=== PATIENT | female | born 1990 | race Caucasian/White ===

== ENCOUNTER 2018-07-24 13:30 | Emergency (ER) | payer OTHER ==
[2018-07-24 13:53] VITALS: BP 157/97
--- NOTE | 2018-07-24 14:11 | UC ---
Skin Complaint HPI - HPI Summary HPI Summary: 28-year-old woman comes in with a chief complaint of a scalp laceration on her left side. Couple hours ago patient was on the floor of her house cleaning and when she got up to standing she struck her left lateral scalp on the edge of a coffee table. She had quite a bit of bleeding. She stopped bleeding with direct pressure. When she became active again started bleeding again. No loss of consciousness no nausea. The light does bother her eyes some when outside. No weakness or numbness. Not on any blood thinners. She does have a headache. - History of Current Complaint Chief Complaint: UCHeadInjury Time Seen by Provider: 07/24/18 13:55 Stated Complaint: HEAD INJURY Hx Last Menstrual Period: 07/2018 Pain Intensity: 8 - Allergy/Home Medications Allergies/Adverse Reactions: Allergies Allergy/AdvReac Type Severity Reaction Status Date / Time No Known Allergies Allergy Verified 07/24/18 13:47 PMH/Surg Hx/FS Hx/Imm Hx Previously Healthy: Yes - Surgical History Surgical History: Yes Surgery Procedure, Year, and Place: gb 2006, 4 cesarians 2007,2010; as a baby intestinal blockage - Family History Known Family History: Positive: Non-Contributory - Social History Alcohol Use: None Substance Use Type: None Smoking Status (MU): Heavy Every Day Tobacco Smoker Type: Cigarettes Amount Used/How Often: 1 PPD Review of Systems All Other Systems Reviewed And Are Negative: Yes Constitutional: Positive: Negative Skin: Positive: Other - SEE HPI Eyes: Positive: Photophobia ENT: Positive: Negative Respiratory: Positive: Negative Cardiovascular: Positive: Negative Gastrointestinal: Positive: Negative Motor: Positive: Negative Neurovascular: Positive: Negative Musculoskeletal: Positive: Negative Neurological: Positive: Headache Psychological: Positive: Negative Is Patient Immunocompromised?: No Physical Exam Triage Information Reviewed: Yes Appearance: Well-Appearing, No Pain Distress, Well-Nourished Vital Signs: Initial Vital Signs Temp 98.1 F 07/24/18 13:48 Pulse 89 07/24/18 13:48 Resp 16 07/24/18 13:48 BP 157/97 07/24/18 13:48 Pulse Ox 100 07/24/18 13:48 Vital Signs Reviewed: Yes Eye Exam: Normal Eyes: Positive: Conjunctiva Clear, Other: - PERRLA/EOMI ENT: Positive: TMs normal - NO HEMOTYMPANUM Neck: Positive: Supple Respiratory: Positive: No respiratory distress Musculoskeletal Exam: Normal Musculoskeletal: Positive: Strength Intact, ROM Intact Neurological Exam: Normal Neurological: Positive: Alert, Muscle Tone Normal Psychological Exam: Normal Psychological: Positive: Age Appropriate Behavior Skin: Positive: Other - 2CM SC SCALP LACERATION LEFT PARIETAL-OCCIPITAL SCALP. NOT BLEEDING. Laceration Repair - Laceration Repair 1 Description: Linear Laceration Size After Repair: Length (cm) - 2CM, Depth (mm) - SC Modified For Repair: No Cleansing Completed Via Routine Prep: Yes Closure Material: Weare - #3 Course/Dx - Course Course Of Treatment: I stapled the laceration with 3 hailey. Patient did have a headache and some mild photophobia out in the sun otherwise no neurologic symptoms. We discussed signs and symptoms of concussion and whether or not to get a head CT. Given her mechanism and her symptoms at this time and not being on a blood thinner were not getting a head CT at this time the patient felt comfortable not getting a head CT at this time. We discussed that if her symptoms worsen at all that she should get reevaluated potentially for imaging if indicated. - Diagnoses Provider Diagnosis: Scalp laceration, Head injury Discharge - Sign-Out/Discharge Documenting (check all that apply): Patient Departure All imaging exams completed and their final reports reviewed: No Studies - Discharge Plan Condition: Stable Disposition: HOME Patient Education Materials: Care For Your Stitches (ED), Laceration (ED) [place]: [facility] [place] [facility] [Outside] Additional Instructions: FOLLOW UP WITH YOUR DOCTOR OR RETURN HERE TO HAVE THE HAILEY TAKEN OUT IN 7 DAYS. GET REEVALUATED SOONER FOR ANY WORSENING OF YOUR CONDITION; PAIN, WEAKNESS, NUMBNESS, DIFFICULTY WITH VISION OR SPEECH, UNEXPLAINED VOMITING OR ANY QUESTIONS OR CONCERNS. - Billing Disposition and Condition Condition: STABLE Disposition: Home
== END 2018-07-24 14:18 | disposition home or self-care (01) ==
LOC: UCCORT 13:30
DX: S01.01XA Laceration without foreign body of scalp, initial encounter (principal); F17.210 Nicotine dependence, cigarettes, uncomplicated; W22.8XXA Striking against or struck by other objects, initial encounter; Y92.9 Unspecified place or not applicable
CPT/HCPCS: 12001; 99201; G0463

== ENCOUNTER 2018-08-08 21:41 | Emergency (ER) | payer OTHER ==
[2018-08-08 21:50] VITALS: BP 155/98
--- NOTE | 2018-08-08 21:54 | UC ---
Skin Complaint HPI - HPI Summary HPI Summary: Pt presents to have hailey removed from left side of head. Pt had hailey placed here on June 23. Pt states she was unable to come back in a timely manner to have them removed prior to today. - History of Current Complaint Chief Complaint: UCLaceration Time Seen by Provider: 08/08/18 21:47 Stated Complaint: REMOVAL OF HAILEY-DONE HERE Hx Obtained From: Patient Hx Last Menstrual Period: 07/2018 ?: No Onset/Duration: Sudden Onset Skin Exposure Onset/Duration: Weeks Ago Timing: Constant Onset Severity: Mild Current Severity: None Pain Intensity: 0 Location: Discrete Aggravating Factor(s): Touch Alleviating Factor(s): Nothing Associated Signs & Symptoms: Positive: Negative - Allergy/Home Medications Allergies/Adverse Reactions: Allergies Allergy/AdvReac Type Severity Reaction Status Date / Time No Known Allergies Allergy Verified 08/08/18 21:50 PMH/Surg Hx/FS Hx/Imm Hx Previously Healthy: Yes - Surgical History Surgical History: Yes Surgery Procedure, Year, and Place: gb 2006, 4 cesarians 2007,2010; as a baby intestinal blockage - Family History Known Family History: Positive: Non-Contributory - Social History Occupation: Employed Full-time Lives: With Family Alcohol Use: None Substance Use Type: None Smoking Status (MU): Heavy Every Day Tobacco Smoker Type: Cigarettes Amount Used/How Often: 1 PPD Have You Smoked in the Last Year: Yes Review of Systems All Other Systems Reviewed And Are Negative: Yes Constitutional: Positive: Negative Skin: Positive: Other - hailey intact no tenderness, swelling, drainage, or erythema at site Eyes: Positive: Negative ENT: Positive: Negative Respiratory: Positive: Negative Cardiovascular: Positive: Negative Gastrointestinal: Positive: Negative Genitourinary: Positive: Negative Motor: Positive: Negative Neurovascular: Positive: Negative Musculoskeletal: Positive: Negative Neurological: Positive: Negative Psychological: Positive: Negative Is Patient Immunocompromised?: No Physical Exam Triage Information Reviewed: Yes Appearance: Well-Appearing Vital Signs: Initial Vital Signs Temp 98.8 F 08/08/18 21:48 Pulse 102 08/08/18 21:48 Resp 20 08/08/18 21:48 BP 155/98 08/08/18 21:48 Pulse Ox 98 08/08/18 21:48 Vital Signs Reviewed: Yes Eye Exam: Normal ENT Exam: Normal Dental Exam: Normal Neck: Positive: Supple Respiratory: Positive: No respiratory distress Musculoskeletal Exam: Normal Neurological Exam: Normal Psychological Exam: Normal Skin Exam: Other - three hailey in tact left side of scalp no erythema at site , drainage, pain or swelling. hailey removed without difficulty Course/Dx - Differential Diagnoses - Skin Complaint Differential Diagnoses: Other - staple removal - Diagnoses Provider Diagnosis: Removal of hailey Discharge - Sign-Out/Discharge Documenting (check all that apply): Patient Departure All imaging exams completed and their final reports reviewed: No Studies - Discharge Plan Condition: Stable Disposition: HOME Patient Education Materials: Stitches Removal (ED) Referrals: [facility] [place] [facility] [Outside] - If Needed No Primary Care Phys,NOPCP [Primary Care Provider] - - Billing Disposition and Condition Condition: STABLE Disposition: Home
== END 2018-08-08 22:00 | disposition home or self-care (01) ==
LOC: UCCORT 21:41
DX: Z48.02 Encounter for removal of sutures (principal)

== ENCOUNTER 2019-04-01 12:23 | Emergency (ER) | payer OTHER ==
[2019-04-01 12:48] VITALS: BP 137/90
--- NOTE | 2019-04-01 13:03 | UC ---
Throat Pain/Nasal Bret HPI - HPI Summary HPI Summary: cold symptoms x 10 days with runny nose, nasal congestion sinus pain and pressure , green / yellow nasal discharge, productive cough with yellow sputum, chest tightness right ear pain since 2 days ago no fever, no chills - History of Current Complaint Chief Complaint: UCRespiratory Stated Complaint: COUGH,CONGESTION,RT EAR/SINUS COMPLAINT Time Seen by Provider: 04/01/19 12:50 Hx Obtained From: Patient Hx Last Menstrual Period: 03/16/19 Onset/Duration: Gradual Onset, Lasting Days - 10, Still Present Severity: Moderate Pain Intensity: 7 Cough: Sputum Appears - yellow Associated Signs & Symptoms: Positive: Sinus Discomfort, Nasal Discharge. Negative: Wheezing, Fever, Vomiting - Allergies/Home Medications Allergies/Adverse Reactions: Allergies Allergy/AdvReac Type Severity Reaction Status Date / Time No Known Allergies Allergy Verified 04/01/19 12:42 PMH/Surg Hx/FS Hx/Imm Hx - Additional Past Medical History Additional PMH: polycystic kidney dx, bicornic uterus - Surgical History Surgical History: Yes Surgery Procedure, Year, and Place: gb 2006, 4 cesarians 2007,2010; as a baby intestinal blockage - Family History Known Family History: Positive: Non-Contributory Negative: Diabetes - Social History Alcohol Use: None Substance Use Type: None Smoking Status (MU): Heavy Every Day Tobacco Smoker Type: Cigarettes Amount Used/How Often: 1 PPD Have You Smoked in the Last Year: Yes Review of Systems All Other Systems Reviewed And Are Negative: Yes Constitutional: Positive: Negative Skin: Positive: Negative Eyes: Positive: Negative ENT: Positive: Sore Throat, Ear Ache, Nasal Discharge, Sinus Congestion, Sinus Pain/Tenderness Respiratory: Positive: Cough Cardiovascular: Positive: Negative Is Patient Immunocompromised?: No Physical Exam Triage Information Reviewed: Yes Appearance: Well-Appearing, No Pain Distress, Well-Nourished Vital Signs: Initial Vital Signs Temp 98.2 F 04/01/19 12:42 Pulse 70 04/01/19 12:42 Resp 16 04/01/19 12:42 BP 137/90 04/01/19 12:42 Pulse Ox 96 04/01/19 12:42 Vital Signs Reviewed: Yes Eye Exam: Normal Eyes: Positive: Conjunctiva Clear ENT: Positive: Normal ENT inspection, Hearing grossly normal, Pharyngeal erythema, Nasal drainage, TM bulging, TM dull, TM red - right TM, Sinus tenderness. Negative: TMs normal Neck: Positive: Supple, Nontender, No Lymphadenopathy Respiratory: Positive: Chest non-tender, No respiratory distress, Decreased breath sounds Cardiovascular: Positive: RRR, No Murmur, Pulses Normal Skin Exam: Normal Throat Pain/Nasal Course/Dx - Differential Dx/Diagnosis Provider Diagnosis: Otitis media of right ear, Bronchitis Discharge ED - Sign-Out/Discharge Documenting (check all that apply): Patient Departure All imaging exams completed and their final reports reviewed: No Studies - Discharge Plan Condition: Stable Disposition: HOME Prescriptions: Amoxicillin/Clavulanate TAB* [Augmentin TAB 875*] 875 mg PO BID #20 tab predniSONE TAB* [Deltasone 20 MG TAB*] 40 mg PO DAILY #10 tab Patient Education Materials: Ear Infection (ED), Acute Bronchitis (ED) Referrals: No Primary Care Phys,NOPCP [Primary Care Provider] - If Needed - Billing Disposition and Condition Condition: STABLE Disposition: Home
== END 2019-04-01 13:01 | disposition home or self-care (01) ==
LOC: UCCORT 12:23
DX: H66.91 Otitis media, unspecified, right ear (principal); J40 Bronchitis, not specified as acute or chronic; R09.81 Nasal congestion; J02.9 Acute pharyngitis, unspecified; F17.210 Nicotine dependence, cigarettes, uncomplicated
CPT/HCPCS: 99212; G0463

== ENCOUNTER 2020-02-22 08:53 | Observation (INO) ==
[2020-02-22 09:42] LABS: Hematocrit 30 % (35-47); Hemoglobin 10.2 g/dL (12.0-16.0); Mean Corpuscular HGB Conc 34 g/dL (31-36); Mean Corpuscular Hemoglobin 33 pg (27-31); Mean Corpuscular Volume 97 fL (80-97); Red Blood Count 3.12 10^6 /uL (3.70-4.87); Red Cell Distribution Width 14 % (10-15)
[2020-02-22] MEDS ORDERED: Ondansetron 4 mg VIAL 2 MG/ML 2 ml VIAL IV PRN (09:53)
[2020-02-22 09:57] LABS: Albumin 4.3 g/dL (3.2-5.2); Albumin/Globulin Ratio 1.8 (1-3); Calcium 8.5 mg/dL (8.6-10.3); EGFR African American 12.4 (>60); EGFR Non-African American 10.3 (>60); Globulin 2.4 g/dL (2-4); Potassium 3.6 mmol/L (3.5-5.0); Total Bilirubin 0.6 mg/dL (0.2-1.0); Total Protein 6.7 g/dL (6.4-8.9)
[2020-02-22 10:25] LABS: ABS Eosinophils 0.1 10^3/ul (0-0.6); ABS Lymphocytes 0.9 10^3/ul (1.0-4.8); ABS Monocytes 0.1 10^3/ul (0-0.8); ABS Neutrophils 2.8 10^3/ul (1.5-7.7); Eosinophil % 3.5 %; Lymphocyte % 23.5 %; Platelet Count 92 10^3/uL (150-450)
[2020-02-22 12:28] VITALS: BP 142/66
[2020-02-22] MEDS ORDERED: Lidocaine 2.5%/Prilocain 2.5% 5 GM TUBE TOPICAL ONE (13:30)
[2020-02-22 14:46] LABS: Hepatitis B Surface Antigen Nonreactive (Nonreactive)
[2020-02-22 15:03] LABS: Hepatitis B Surface Ab Immune (Immune)
[2020-02-22] MEDS: Heparin 1,000 UNIT/ML 10 ml (10,000 UNITS) CATHLAB/DIALYSIS DIALYSIS ONE ×3 (15:35→17:29)
== END 2020-02-22 19:30 | disposition home or self-care (01) | DRG 470 ==
LOC: MED 08:53 → ED 08:53 → OBSVTOIN 11:32 → INTOOBSV 11:32
PROVIDERS: ADMIT Pediatrics; ATTEND Pediatrics

== ENCOUNTER 2022-04-25 08:46 | Inpatient (IN) ==
[2022-04-25 10:31] LABS: ABS Basophils 0.1 10^3/ul (0-0.2); ABS Eosinophils 0.1 10^3/ul (0-0.6); ABS Lymphocytes 1.3 10^3/ul (1.0-4.8); ABS Monocytes 0.3 10^3/ul (0-0.8); Eosinophil % 1.8 %; Hematocrit 27 % (35-47); Hemoglobin 8.7 g/dL (12.0-16.0); Lymphocyte % 19.3 %; Mean Corpuscular HGB Conc 33 g/dL (31-36); Mean Corpuscular Hemoglobin 31 pg (27-31); Mean Corpuscular Volume 95 fL (80-97); Mean Platelet Volume 11.5 fL (7.4-10.4); Platelet Count 129 10^3/uL (150-450); Red Blood Count 2.81 10^6 /uL (3.70-4.87); Red Cell Distribution Width 14 % (10-15); White Blood Count 6.9 10^3/uL (3.5-10.8)
[2022-04-25 10:56] LABS: Albumin 4.5 g/dL (3.2-5.2); Calcium 8.2 mg/dL (8.6-10.3); Potassium 3.7 mmol/L (3.5-5.0); Total Bilirubin 0.5 mg/dL (0.2-1.0)
[2022-04-25 11:02] LABS: Albumin/Globulin Ratio 1.9 (1-3); Creatinine, Serum 11.08 mg/dL (0.51-0.95); Globulin 2.4 g/dL (2-4); Total Protein 6.9 g/dL (6.4-8.9); eGFR CKD-EPI 4.3 (>60)
[2022-04-25 12:02] LABS: Hepatitis B Surface Antigen Nonreactive (Nonreactive)
[2022-04-25 12:19] LABS: Hepatitis B Surface Ab Immune (Immune)
[2022-04-25 13:44] LABS: Hepatitis B Core IgM Nonreactive (Nonreactive)
[2022-04-25 13:56] LABS: Hepatitis C Antibody Negative (Negative)
[2022-04-25] MEDS: Heparin 1,000 UNIT/ML 10 ml (10,000 UNITS) CATHLAB/DIALYSIS DIALYSIS SCH ×3 (14:25→17:01)
[2022-04-25 19:52] VITALS: BP 140/83
[2022-04-26] MEDS ORDERED: Sodium Bicarb 650 mg (ANTACID) TAB PO SCH (09:00)
== END 2022-04-25 19:40 | disposition home or self-care (01) | DRG 682 ==
LOC: EDHOLD 08:46 → ED 08:46 → OBSVTOIN 11:17 → EDHOLD 14:53
PROVIDERS: ADMIT Internal Medicine; ATTEND Internal Medicine

== ENCOUNTER 2022-12-19 04:21 | Inpatient (IN) ==
[2022-12-19 06:25] LABS: ABS Eosinophils 0.2 10^3/uL (0.0-0.5); ABS Lymphocytes 1.5 10^3/uL (1.0-4.8); ABS Monocytes 0.3 10^3/uL (0.0-0.9); ABS Neutrophils 6.1 10^3/uL (1.5-7.6); ABS Nucleated RBC 0.01 10^3/ul; Eosinophil % 2.1 %; Hematocrit 23.5 % (35-45); Hemoglobin 7.8 g/dL (11.5-14.3); Lymphocyte % 18.8 %; Mean Corpuscular Hemoglobin 30.7 pg (27-33); Mean Corpuscular Hgb Conc 33.2 g/dL (31-36); Mean Corpuscular Volume 92.3 fL (80-97); Mean Platelet Volume 11.2 fL (7.5-11.2); Nucleated Red Blood Cells % 0.1 /100 WBC (0.0-0.4); Platelet Count 118 10^3/uL (150-450); Red Blood Count 2.55 10^6/uL (3.63-4.92); Red Cell Distribution Width 13.6 % (12-17); White Blood Count 8.2 10^3/uL (3.8-11.8)
[2022-12-19 06:40] LABS: Calcium 7.8 mg/dL (8.6-10.3); Creatinine, Serum 12.42 mg/dL (0.51-0.95); Magnesium 1.7 mg/dL (1.9-2.7); Potassium 3.8 mmol/L (3.5-5.0); eGFR CKD-EPI 3.7 (>60)
[2022-12-19] MEDS ORDERED: NS 0.9% 1000 ml BAG 100 ML IV PRN (07:51)
[2022-12-19] MEDS ORDERED: NS 0.9% 1000 ml BAG 200 ML IV PRN (07:51)
[2022-12-19] MEDS ORDERED: Albumin Human 25% 25 GM/100 ML BTL IV PRN (07:51)
[2022-12-19 12:24] LABS: Urine Appearance Cloudy; Urine Bilirubin Negative (Negative); Urine Blood 3+ (Negative); Urine Color Straw; Urine Glucose 1+(50 mg/dL) (Negative); Urine Ketones Negative (Negative); Urine Nitrite Negative (Negative); Urine Protein 1+(30 mg/dL) (Negative); Urine Specific Gravity 1.006 (1.002-1.030); Urine Urobilinogen Negative (Negative)
[2022-12-19 12:33] LABS: Urine Bacteria 1+ (Absent); Urine Red Blood Cell 3+(>10/hpf) (Absent); Urine Squamous Epithelial Cell Present (Absent); Urine White Blood Cell 3+(>20/hpf) (Absent)
[2022-12-19 12:40] LABS: Hepatitis B Surface Antigen Nonreactive (Nonreactive)
[2022-12-19 12:58] LABS: Hepatitis B Surface Ab Immune (Immune)
[2022-12-19] MEDS ORDERED: Lidocaine 2.5%/Prilocain 2.5% 5 GM TUBE TOPICAL ONE (14:04)
[2022-12-19] MEDS: Heparin 1,000 UNIT/ML 10 ml (10,000 UNITS) CATHLAB/DIALYSIS DIALYSIS PRN ×2 (14:30→15:38)
[2022-12-19 15:44] LABS: Hepatitis B Core IgM Nonreactive (Nonreactive)
[2022-12-19] MEDS: Sodium Bicarb 650 mg (ANTACID) TAB PO SCH (20:58)
[2022-12-20 06:13] LABS: ABS Eosinophils 0.1 10^3/uL (0.0-0.5); ABS Lymphocytes 0.9 10^3/uL (1.0-4.8); ABS Monocytes 0.5 10^3/uL (0.0-0.9); ABS Neutrophils 6.5 10^3/uL (1.5-7.6); Hematocrit 23.8 % (35-45); Hemoglobin 8.1 g/dL (11.5-14.3); Lymphocyte % 11.4 %; Mean Corpuscular Hemoglobin 30.9 pg (27-33); Mean Corpuscular Hgb Conc 33.9 g/dL (31-36); Mean Corpuscular Volume 91.2 fL (80-97); Mean Platelet Volume 11.1 fL (7.5-11.2); Platelet Count 110 10^3/uL (150-450); Red Blood Count 2.61 10^6/uL (3.63-4.92); Red Cell Distribution Width 13.2 % (12-17)
[2022-12-20 06:36] LABS: Calcium 8.3 mg/dL (8.6-10.3); Creatinine, Serum 7.52 mg/dL (0.51-0.95); eGFR CKD-EPI 6.7 (>60)
[2022-12-20] MEDS ORDERED: Lidocaine 2.5%/Prilocain 2.5% 5 GM TUBE TOPICAL SCH (09:00)
[2022-12-20] MEDS: Heparin 1,000 UNIT/ML 10 ml (10,000 UNITS) CATHLAB/DIALYSIS DIALYSIS PRN ×3 (09:30→11:29)
[2022-12-20] MEDS: Sodium Bicarb 650 mg (ANTACID) TAB PO SCH (11:13)
[2022-12-20 13:13] VITALS: BP 128/85
[2022-12-24 17:56] LABS: TB1 Ag minus Nil Result -0.01 IU/mL
[2022-12-24 17:59] LABS: QuantiferonTb Gold Plus Result Negative (Negative)
== END 2022-12-20 15:10 | disposition left against medical advice (07) | DRG 682 ==
LOC: ED 04:21 → MED 04:21
PROVIDERS: ADMIT Student in an Organized Health Care Education/Training Program; ATTEND Hospitalist